=== PATIENT | female | born 1935 | race Caucasian/White ===

== ENCOUNTER → 2023-12-30 10:02 | Outpatient (CLI) | payer MEDICARE, SELFPAY | LOC: WC 10:28 | PROVIDERS: Referring Provider Dermatology MOHS-Micrographic Surgery; Visit Provider Surgery | DX: T81.89XA Other complications of procedures, not elsewhere classified, initial encounter (principal); S81.802A Unspecified open wound, left lower leg, initial encounter; L98.8 Other specified disorders of the skin and subcutaneous tissue | CPT/HCPCS: 97597; 99203; 99213 ==

== ENCOUNTER → 2024-01-06 13:00 | Outpatient (CLI) | payer MEDICARE, SELFPAY | LOC: WC 13:01 | PROVIDERS: Referring Provider Dermatology MOHS-Micrographic Surgery; Visit Provider Surgery | DX: S81.802A Unspecified open wound, left lower leg, initial encounter (principal); T81.89XA Other complications of procedures, not elsewhere classified, initial encounter; L98.8 Other specified disorders of the skin and subcutaneous tissue | CPT/HCPCS: 97602; 99213 ==